=== PATIENT | male | born 1955 | race Caucasian/White ===

== ENCOUNTER 2022-01-07 16:58 | Inpatient (IN) ==
[2022-01-07 19:04] LABS: Basophils % 0.5 %; Eosinophils # 0.2 K/mcL (0.0-0.6); Eosinophils % 2.2 %; Hemoglobin 8.7 g/dL (12.9-16.9); Immature Granulocytes % 0.6 % (0-4); Lymphocytes # 1.6 K/mcL (0.6-4.6); Lymphocytes % 18.8 %; Mean Corpuscular HGB Conc 33.5 g/dL (31.6-35.5); Mean Corpuscular Hemoglobin 28.4 pg (28.0-33.3); Mean Platelet Volume 8.5 fL (9.4-12.4); Monocytes # 0.5 K/mcL (0.0-1.3); Monocytes % 5.8 %; Neutrophils # 6.3 K/mcL (1.6-8.9); Platelet Count 297 K/mcL (140-400); Red Blood Count 3.06 M/mcL (4.19-5.50); Red Cell Distribution Width 13.8 % (11.5-14.5); Segmented Neutrophils % 72.1 %; White Blood Count 8.7 K/mcL (4.3-11.1)
[2022-01-07] MEDS ORDERED: Simethicone 80 MG TAB.CHEW PO ONE (19:09)
[2022-01-07 19:15] LABS: INR 1.1; Prothrombin Time 11.8 Seconds (9.4-12.1)
[2022-01-07 19:22] LABS: BUN/Creatinine Ratio 30 (6-26); Blood Urea Nitrogen 26 mg/dL (8-23); Calcium 9.6 mg/dL (8.6-10.3); Carbon Dioxide 23 mEq/L (23-29); Chloride 105 mEq/L (98-107); Glucose 123 mg/dL (70-105); Osmolality,Calculated 284 (280-300); Sodium 134 mEq/L (136-145); eGFR For African Americans > 60 (> 60); eGFR For Non-African Americans > 60 (> 60)
[2022-01-07] MEDS ORDERED: Pantoprazole 40 MG VIAL IVP ONE ×2 (20:35→20:56)
[2022-01-07 21:44] LABS: Influenza A PCR Negative (Negative); Influenza B PCR Negative (Negative); Resp. Syncytial Virus PCR Negative (Negative)
[2022-01-07 21:45] LABS: SARS-CoV-2 by PCR (In House) Negative (Negative)
[2022-01-07] MEDS ORDERED: Naloxone 0.4 MG/ML INJ IVP PRN (22:01)
[2022-01-07] MEDS ORDERED: Acetaminophen 325 MG TABLET PO PRN (22:01)
[2022-01-07] MEDS ORDERED: Ondansetron 4 MG/2 ML VIAL IVP PRN (22:01)
[2022-01-08 02:01] LABS: Basophils % 0.5 %; Eosinophils # 0.2 K/mcL (0.0-0.6); Eosinophils % 3.1 %; Hematocrit 22.3 % (37.5-50.1); Hemoglobin 7.6 g/dL (12.9-16.9); Immature Granulocytes % 0.5 % (0-4); Lymphocytes # 1.8 K/mcL (0.6-4.6); Mean Corpuscular HGB Conc 34.1 g/dL (31.6-35.5); Mean Corpuscular Hemoglobin 29.2 pg (28.0-33.3); Mean Corpuscular Volume 85.8 fL (83.0-100.0); Mean Platelet Volume 8.3 fL (9.4-12.4); Monocytes # 0.5 K/mcL (0.0-1.3); Neutrophils # 5.1 K/mcL (1.6-8.9); Platelet Count 261 K/mcL (140-400); Red Cell Distribution Width 13.6 % (11.5-14.5); Segmented Neutrophils % 65.9 %; White Blood Count 7.8 K/mcL (4.3-11.1)
[2022-01-08 02:25] LABS: % Iron Saturation 13 % (20-55); Alanine Aminotransferase 17 Units/L (7-52); Albumin 3.5 g/dL (3.5-5.7); Albumin/Globulin Ratio 1.8 (1.1-2.2); Alkaline Phosphatase 38 Units/L (34-104); Aspartate Amino Transferase 14 Units/L (13-39); BUN/Creatinine Ratio 23 (6-26); Bilirubin,Indirect 0.3 mg/dL (0.0-1.0); Bilirubin,Total 0.3 mg/dL (0.3-1.0); Blood Urea Nitrogen 23 mg/dL (8-23); Calcium 9.1 mg/dL (8.6-10.3); Carbon Dioxide 23 mEq/L (23-29); Chloride 105 mEq/L (98-107); Glucose 109 mg/dL (70-105); Iron 46 mcg/dL (65-175); Magnesium 1.8 mg/dL (1.6-2.6); Osmolality,Calculated 282 (280-300); Potassium 4.2 mEq/L (3.5-5.1); Sodium 134 mEq/L (136-145); Total Protein 5.5 g/dL (6.4-8.9); Transferrin 260 mg/dL (203-362); eGFR For African Americans > 60 (> 60); eGFR For Non-African Americans > 60 (> 60)
[2022-01-08 02:37] LABS: Ferritin 56 ng/mL (20-250)
[2022-01-08] MEDS: Pantoprazole 40 MG VIAL IVP SCH ×2 (05:17→18:04)
[2022-01-08] MEDS ORDERED: lisinopriL 20 MG TABLET PO SCH (09:00)
[2022-01-08] MEDS ORDERED: Lidocaine -MPF 2% 2 ML VIAL ONE (10:03)
[2022-01-08 11:41] LABS: Hematocrit 23.1 % (37.5-50.1); Hemoglobin 7.7 g/dL (12.9-16.9)
[2022-01-08] MEDS: 0.9 % Sodium Chloride 1,000 ML IVC SCH (18:04)
[2022-01-09 05:28] LABS: Basophils % 0.3 %; Eosinophils # 0.2 K/mcL (0.0-0.6); Eosinophils % 3.1 %; Hematocrit 20.5 % (37.5-50.1); Hemoglobin 6.9 g/dL (12.9-16.9); Immature Granulocytes % 0.3 % (0-4); Lymphocytes # 1.4 K/mcL (0.6-4.6); Lymphocytes % 22.2 %; Mean Corpuscular HGB Conc 33.7 g/dL (31.6-35.5); Mean Corpuscular Hemoglobin 28.9 pg (28.0-33.3); Mean Corpuscular Volume 85.8 fL (83.0-100.0); Mean Platelet Volume 8.7 fL (9.4-12.4); Monocytes # 0.4 K/mcL (0.0-1.3); Monocytes % 6.6 %; Neutrophils # 4.1 K/mcL (1.6-8.9); Platelet Count 248 K/mcL (140-400); Red Blood Count 2.39 M/mcL (4.19-5.50); Red Cell Distribution Width 13.6 % (11.5-14.5); Segmented Neutrophils % 67.5 %; White Blood Count 6.1 K/mcL (4.3-11.1)
[2022-01-09] MEDS: 0.9 % Sodium Chloride 1,000 ML IVC SCH (06:41)
[2022-01-09] MEDS: Pantoprazole 40 MG VIAL IVP SCH ×2 (06:43→17:47)
[2022-01-09] MEDS ORDERED: 0.9 % Sodium Chloride 250 ML ONE (11:33)
[2022-01-09 16:08] LABS: Hemoglobin 8.3 g/dL (12.9-16.9)
[2022-01-10 03:57] LABS: Hematocrit 22.5 % (37.5-50.1); Hemoglobin 7.6 g/dL (12.9-16.9)
[2022-01-10] MEDS: Pantoprazole 40 MG VIAL IVP SCH (06:29)
[2022-01-10 07:21] VITALS: BP 129/67; PULSE 67; TEMP 98; O2SAT 97
[2022-01-10 08:52] LABS: Hematocrit 25.4 % (37.5-50.1); Hemoglobin 8.6 g/dL (12.9-16.9)
== END 2022-01-10 10:05 | disposition home or self-care (01) | DRG 369 ==
LOC: EMEROOARM 16:58 → 3ANU 16:58 → SUATTDRO 21:22 → 3ANU 22:14
PROVIDERS: ADMIT Student in an Organized Health Care Education/Training Program; ATTEND Registered Nurse